=== PATIENT | female | born 1945 | race Two or more races ===

== ENCOUNTER 2024-06-07 15:07 | Inpatient (IN) | payer MEDICARE, OTHER ==
[~2024-06-07] VITALS: Ht 162.6 cm; Wt 97.1 kg
[~2024-06-07 15:07] MED LIST: ATOR20TA PO; ATORVASTATIN TAB 20MG; CEPH500C2 PO; ESCI20TA PO; ESOM40CA; FURO20TA4; HYDR-4275; LORA2TAB; LORA2TAB95 PO; LOSA1TAB15 PO; METO25TA4 PO; RANI300T4; TEMA30CA PO
[2024-06-07] MEDS ORDERED: KETOROLAC TROMETHAMINE 15 MG/ML VIAL ONE (16:08)
[2024-06-07] MEDS: KETOROLAC TROMETHAMINE 15 MG/ML VIAL IV ONE (16:20)
[2024-06-07 16:44] LABS: BASOPHILS % (AUTO) 0.6 % (0.0-2.0); EOSINOPHILS # (AUTO) 0.1 K/uL (0.0-0.7); EOSINOPHILS % (AUTO) 0.9 % (0.0-6.0); HEMATOCRIT 38 % (33-45); HEMOGLOBIN 12.5 g/dL (11.5-14.8); LYMPHOCYTES # (AUTO) 0.9 K/uL (0.8-4.8); LYMPHOCYTES % (AUTO) 14.7 % (20.0-44.0); MEAN CORPUSCULAR HEMOGLOBIN 29 PG (26.0-33.0); MEAN CORPUSCULAR HGB CONC 33 g/dl (31.0-36.0); MEAN CORPUSCULAR VOLUME 89 fL (82-100); MONOCYTES # (AUTO) 0.4 K/uL (0.1-1.30); MONOCYTES % (AUTO) 6.4 % (2.0-12.0); NEUTROPHILS % (AUTO) 77.4 % (43.0-81.0); PLATELET COUNT (AUTO) 164 K/uL (150-450); RED BLOOD CELL COUNT(AUTO) 4.25 MIL/uL (4.0-5.2); RED CELL DISTRIBUTION WIDTH 14.4 % (11.5-15.0); WHITE BLOOD COUNT (AUTO) 6.5 K/uL (4.3-11.0)
[2024-06-07 17:08] LABS: CALCIUM, SERUM 9.8 mg/dL (8.5-10.1); CREATININE 0.7 mg/dL (0.6-1.3); POTASSIUM 3.8 mmol/L (3.5-5.1)
[2024-06-07 17:20] LABS: ALBUMIN 3.7 g/dL (3.4-5.0); BILIRUBIN,TOTAL 0.4 mg/dL (0.2-1.0)
[2024-06-07 17:39] LABS: APPEARANCE,URINE CLEAR (CLEAR); BILIRUBIN,URINE NEGATIVE (NEGATIVE); BLOOD, URINE NEGATIVE Ery/uL (NEGATIVE); COLOR,URINE YELLOW (YELLOW); KETONES,URINE NEGATIVE (NEGATIVE); LEUKOCYTE ESTERASE ,URINE NEGATIVE (NEGATIVE); NITRITE, URINE NEGATIVE (NEGATIVE); PROTEIN,URINE NEGATIVE (NEGATIVE); UGLUCOSE NEGATIVE (NEGATIVE); UROBILINOGEN,URINE 0.2 EU/dL (0.2)
[2024-06-07] MEDS: LORAZEPAM INJ 2 MG/ML VIAL IV ONE (18:33)
[2024-06-07] MEDS ORDERED: HYDROMORPHONE 1 MG/1 ML DISP.SYRIN ONE (19:51)
[2024-06-07] MEDS ORDERED: ONDANSETRON HCL/PF 4 MG/2 ML VIAL ONE (19:51)
[2024-06-07] MEDS: ONDANSETRON HCL/PF - ER 4 MG/2 ML VIAL IV ONE (19:52)
[2024-06-07] MEDS: HYDROMORPHONE 1 MG/1 ML DISP.SYRIN IV ONE (19:52)
[2024-06-07 21:30] VITALS: BP 144/80; TEMP 97.7; O2SAT 99
[2024-06-07] MEDS ORDERED: MAGNESIUM HYDROXIDE 30 ML UDC PO PRN (22:30)
[2024-06-07] MEDS ORDERED: ACETAMINOPHEN 325 MG TABLET PO PRN (22:30)
[2024-06-07] MEDS ORDERED: ONDANSETRON HCL/PF 4 MG/2 ML VIAL IVP PRN (22:30)
[2024-06-07] MEDS: ENOXAPARIN SODIUM 40 MG/0.4 ML DISP.SYRIN SQ SCH (22:30)
[2024-06-07] MEDS: ATORVASTATIN 10 MG TABLET PO SCH (23:05)
[2024-06-07] MEDS: TEMAZEPAM 15 MG CAPSULE PO PRN (23:05)
[2024-06-08] MEDS: HYDROMORPHONE 1 MG/1 ML DISP.SYRIN IV PRN (00:58)
[2024-06-08 07:23] LABS: CALCIUM, SERUM 9.3 mg/dL (8.5-10.1); CREATININE 0.7 mg/dL (0.6-1.3); MAGNESIUM 2.3 mg/dL (1.8-2.4); PHOSPHORUS 4.5 mg/dL (2.5-4.9); POTASSIUM 3.7 mmol/L (3.5-5.1)
[2024-06-08 07:36] LABS: BASOPHILS % (AUTO) 0.7 % (0.0-2.0); EOSINOPHILS # (AUTO) 0.1 K/uL (0.0-0.7); EOSINOPHILS % (AUTO) 1.2 % (0.0-6.0); HEMATOCRIT 37 % (33-45); HEMOGLOBIN 12.1 g/dL (11.5-14.8); LYMPHOCYTES # (AUTO) 1.8 K/uL (0.8-4.8); LYMPHOCYTES % (AUTO) 26.1 % (20.0-44.0); MEAN CORPUSCULAR HEMOGLOBIN 29 PG (26.0-33.0); MEAN CORPUSCULAR HGB CONC 33 g/dl (31.0-36.0); MEAN CORPUSCULAR VOLUME 90 fL (82-100); MONOCYTES # (AUTO) 0.8 K/uL (0.1-1.30); MONOCYTES % (AUTO) 11.3 % (2.0-12.0); NEUTROPHILS # (AUTO) 4.2 K/uL (1.8-8.9); NEUTROPHILS % (AUTO) 60.7 % (43.0-81.0); PLATELET COUNT (AUTO) 183 K/uL (150-450); RED BLOOD CELL COUNT(AUTO) 4.11 MIL/uL (4.0-5.2); RED CELL DISTRIBUTION WIDTH 14.8 % (11.5-15.0); WHITE BLOOD COUNT (AUTO) 6.9 K/uL (4.3-11.0)
[2024-06-08 08:00] VITALS: BP 120/64; TEMP 97.5; O2SAT 97
[2024-06-08] MEDS: FUROSEMIDE 20 MG TABLET PO SCH (08:28)
[2024-06-08] MEDS: LOSARTAN POTASSIUM 50 MG TABLET PO SCH (08:28)
[2024-06-08] MEDS: ESCITALOPRAM OXALATE (10 MG) 10 MG TABLET PO SCH (08:28)
[2024-06-08] MEDS: METOPROLOL SUCCINATE 25 MG TAB.SR.24H PO SCH (08:29)
[2024-06-08] MEDS ORDERED: MELO-107 PO (12:12)
[2024-06-08] MEDS ORDERED: HYDR4TAB57 PO (12:12)
[2024-06-08] MEDS ORDERED: GABA300C PO (12:12)
[2024-06-08] MEDS ORDERED: HYDR-500 PO (12:12)
[2024-06-08] MEDS ORDERED: FURO-145 PO (12:12)
[2024-06-08] MEDS ORDERED: ARIP2TAB3 PO (12:12)
[2024-06-08 16:00] VITALS: BP 120/64; TEMP 97.3; O2SAT 95
[2024-06-08] MEDS: ARIPIPRAZOLE 2 MG TABLET PO SCH (17:58)
[2024-06-08] MEDS ORDERED: hydrOXYzine PAMOATE 25 MG CAPSULE PO PRN (18:00)
[2024-06-08 20:00] VITALS: BP 118/72; TEMP 97.9; O2SAT 96
[2024-06-08] MEDS: LORAZEPAM 1 MG TABLET PO SCH (21:41)
[2024-06-09 06:49] LABS: BASOPHILS % (AUTO) 0.5 % (0.0-2.0); EOSINOPHILS # (AUTO) 0.1 K/uL (0.0-0.7); EOSINOPHILS % (AUTO) 1.3 % (0.0-6.0); HEMATOCRIT 31 % (33-45); HEMOGLOBIN 10.7 g/dL (11.5-14.8); LYMPHOCYTES # (AUTO) 1.4 K/uL (0.8-4.8); LYMPHOCYTES % (AUTO) 24.4 % (20.0-44.0); MEAN CORPUSCULAR HEMOGLOBIN 31 PG (26.0-33.0); MEAN CORPUSCULAR HGB CONC 34 g/dl (31.0-36.0); MEAN CORPUSCULAR VOLUME 90 fL (82-100); MONOCYTES # (AUTO) 0.6 K/uL (0.1-1.30); MONOCYTES % (AUTO) 9.7 % (2.0-12.0); NEUTROPHILS # (AUTO) 3.7 K/uL (1.8-8.9); NEUTROPHILS % (AUTO) 64.1 % (43.0-81.0); PLATELET COUNT (AUTO) 134 K/uL (150-450); RED BLOOD CELL COUNT(AUTO) 3.49 MIL/uL (4.0-5.2); RED CELL DISTRIBUTION WIDTH 14.6 % (11.5-15.0); WHITE BLOOD COUNT (AUTO) 5.8 K/uL (4.3-11.0)
[2024-06-09 07:06] LABS: CALCIUM, SERUM 9.2 mg/dL (8.5-10.1); CREATININE 0.6 mg/dL (0.6-1.3); MAGNESIUM 2.2 mg/dL (1.8-2.4); PHOSPHORUS 3.4 mg/dL (2.5-4.9); POTASSIUM 3.7 mmol/L (3.5-5.1)
[2024-06-09 08:00] VITALS: BP 122/90; TEMP 99.1; O2SAT 98
[2024-06-09] MEDS: FUROSEMIDE 20 MG TABLET PO SCH (09:00)
[2024-06-09] MEDS: GABAPENTIN 300 MG CAPSULE PO SCH (09:20)
[2024-06-09 16:00] VITALS: BP 123/75; TEMP 98.8; O2SAT 98
[2024-06-09] MEDS: MELOXICAM 7.5 MG TABLET PO PRN (18:34)
[2024-06-09 21:00] VITALS: BP 145/79; TEMP 97.7; O2SAT 97
[2024-06-09 23:00] VITALS: BP 139/69
[2024-06-10 08:00] VITALS: BP 168/74; TEMP 98.2; O2SAT 91
[2024-06-10] MEDS: HYDROCODONE/APAP 5/325MG TABLET PO PRN (15:50)
[2024-06-10 16:00] VITALS: BP 138/60; TEMP 98.3; O2SAT 93
[2024-06-10 19:34] VITALS: BP 173/100
[2024-06-10] MEDS: hydrALAZINE HCL 50 MG TABLET PO ONE (19:34)
== END 2024-06-10 20:30 | DRG 554 ==
LOC: ER 15:13 → MED 20:54
PROVIDERS: ATTEND Nurse Practitioner Acute Care
DX: M19.09 Primary osteoarthritis, other specified site (principal); M51.362 Other intervertebral disc degeneration, lumbar region with discogenic back pain and lower extremity pain; M79.604 Pain in right leg; E66.9 Obesity, unspecified; I10 Essential (primary) hypertension; Z68.36 Body mass index [BMI] 36.0-36.9, adult; M48.061 Spinal stenosis, lumbar region without neurogenic claudication; F41.9 Anxiety disorder, unspecified; G89.29 Other chronic pain; Z88.5 Allergy status to narcotic agent; Z88.6 Allergy status to analgesic agent; Z96.652 Presence of left artificial knee joint; Z91.81 History of falling
CPT/HCPCS: 36415; 71045-TC; 72131-TC; 73552; 80048-TC; 80053-TC; 82962-TC; 83735-TC; 83880; 84100-TC; 84484-TC; 85025-TC; 93971-TC; 97110-TC; 97116-TC; 97530-TC; G0378; J1171; J1650; J1885; J2405